=== PATIENT | male | born 1975 | race Caucasian/White ===

== ENCOUNTER 2016-10-15 08:21 | Emergency (ER) | payer BC ==
[2016-10-15 09:33] VITALS: BP 101/64
--- NOTE | 2016-10-15 09:48 | UC ---
Eye Complaint HPI - HPI Summary HPI Summary: DIAGNOSED LAST YEAR WITH MRSA; THREE DAYS OF RIGHT UPPER EYELID SWELLING TENDERNESS AND REDNESS, NO DISCHARGE. NO FEVER. - History of Current Complaint Chief Complaint: UCEye Stated Complaint: EYE IRRITATION Time Seen by Provider: 10/15/16 09:06 Hx Obtained From: Patient Onset/Duration: Gradual Onset, Lasting Days, Still Present Severity Initially: Mild Severity Currently: Mild Pain Intensity: 2 Pain Scale Used: 0-10 Numeric Location of Injury: Eye Lid (upper) Character: Dull Alleviating Factor(s): Nothing Associated Signs And Symptoms: Positive: Swelling. Negative: Photophobia, Drainage (Clear), Drainage (Purulent), Vision Impairment Bilateral, Vision Impairment Right, Vision Impairment Left, Fever - Risk Factors Penetrating Injury Risk Factor: Negative Acute Glaucoma Risk Factors: Negative - Allergies/Home Medications Allergies/Adverse Reactions: Allergies Allergy/AdvReac Type Severity Reaction Status Date / Time Vancomycin AdvReac Rash Verified 10/15/16 08:47 PMH/Surg Hx/FS Hx/Imm Hx Previously Healthy: Yes Endocrine History Of: Denies: Diabetes Cardiovascular History Of: Denies: Hypertension, Congestive Heart Failure GI/ History Of: Denies: Renal Disease - Surgical History Surgical History: Yes Surgery Procedure, Year, and Place: perianal abscess drainage x2 - Family History Known Family History: Positive: None Negative: Diabetes - Social History Occupation: Employed Full-time Lives: With Family Alcohol Use: Rare Substance Use Type: None Smoking Status (MU): Never Smoked Tobacco - Immunization History Most Recent Influenza Vaccination: Never Most Recent Tetanus Shot: 2016 Review of Systems Constitutional: Negative Skin: Other - RIGHT SUPERIOR EYELID REDNESS SWELLING Eyes: Negative ENT: Negative Respiratory: Negative Cardiovascular: Negative Gastrointestinal: Negative Genitourinary: Negative Motor: Negative Neurovascular: Negative Musculoskeletal: Negative Neurological: Negative Psychological: Negative All Other Systems Reviewed And Are Negative: Yes Physical Exam Triage Information Reviewed: Yes Appearance: Well-Appearing, No Pain Distress, Well-Nourished Vital Signs: Initial Vital Signs Temp 97.8 F 10/15/16 08:49 Pulse 66 10/15/16 08:49 Resp 18 10/15/16 08:49 BP 104/71 10/15/16 08:49 Pulse Ox 100 10/15/16 08:49 Vital Signs Reviewed: Yes Eyes: Positive: Conjunctiva Clear, Other: - RIGHT SUPERIOR EYELID EDEMA ERRETHEMA ENT Exam: Normal ENT: Positive: Normal ENT inspection, Hearing grossly normal, Pharynx normal, TMs normal Dental Exam: Normal Neck exam: Normal Neck: Positive: Supple, Nontender, No Lymphadenopathy Respiratory Exam: Normal Respiratory: Positive: Chest non-tender, Lungs clear, Normal breath sounds, No respiratory distress, No accessory muscle use Cardiovascular Exam: Normal Cardiovascular: Positive: RRR, No Murmur, Pulses Normal Abdominal Exam: Normal Abdomen Description: Positive: Nontender, No Organomegaly Musculoskeletal Exam: Normal Musculoskeletal: Positive: Strength Intact, ROM Intact, No Edema Neurological Exam: Normal Psychological Exam: Normal Psychological: Positive: Normal Response To Family Skin Exam: Normal Eye Complaint Course/Dx - Differential Dx/Diagnosis Differential Diagnosis/HQI/PQRI: Conjunctivitis, Periorbital Cellulitis, Orbital Cellulitis Provider Diagnoses: RIGHT SUPERIOR EYELID STYE Discharge - Discharge Plan Condition: Stable Disposition: HOME Prescriptions: Sulfamethox/Trimethoprim DS* [Bactrim DS 800/160 TAB*] 1 tab PO BID #20 tab Patient Education Materials: MRSA (Methicillin Resistant Staphylococcus Aureus ) (ED), Stye (ED) Referrals: Rabia Dasilva MD [Primary Care Provider] - Luiz Agrawal MD [Medical Doctor] -
== END 2016-10-15 09:34 | disposition home or self-care (01) ==
LOC: UCEAST 08:21
DX: H00.011 Hordeolum externum right upper eyelid (principal); Z88.1 Allergy status to other antibiotic agents
CPT/HCPCS: 99212; G0463